=== PATIENT | male | born 1995 | race Caucasian/White ===

== ENCOUNTER 2018-05-23 14:06 | Emergency (ER) | payer OTHER | END 2018-05-23 15:35 | disposition home or self-care (01) | LOC: ERS 14:06 | DX: F41.9 Anxiety disorder, unspecified (principal); Z87.891 Personal history of nicotine dependence | CPT/HCPCS: 36416; 93005 ==

== ENCOUNTER 2018-07-18 13:56 | Emergency (ER) | payer OTHER, SELFPAY ==
--- NOTE | 2018-07-18 15:41 | RAD ---
CHEST TWO VIEWS: HISTORY: Chest pain. Anxiety attack. Dizziness. FINDINGS: Heart size is normal. Lungs are clear. IMPRESSION: No acute intrathoracic disease. POS: C
--- NOTE | 2018-07-22 11:28 | EKG ---
Test Reason : Blood Pressure : / mmHG Vent. Rate : 080 BPM Atrial Rate : 080 BPM P-R Int : 156 ms QRS Dur : 078 ms QT Int : 342 ms P-R-T Axes : 055 058 014 degrees QTc Int : 394 ms Normal sinus rhythm Normal ECG Confirmed by MARY BETH DASWON DO ([id number]), social media editor FILI CARDONA ([id number] on 07/22/2018 11:28:01 AM Referred By: Confirmed By:MARY BETH DAWSON DO
== END 2018-07-18 16:10 | disposition home or self-care (01) ==
LOC: ERS 13:56
DX: F41.9 Anxiety disorder, unspecified (principal); Z87.891 Personal history of nicotine dependence
CPT/HCPCS: 71046; 93005

== ENCOUNTER 2018-12-09 12:08 | Emergency (ER) | payer SELFPAY ==
[2018-12-09 13:08] LABS: #Eosinphils 0.1 thou/uL (0.0-0.7); #Lymphocytes 1.8 thou/uL (1.20-3.40); #Monocytes 0.6 thou/uL (0.11-0.59); #Neutrophils 5.8 thou/uL (1.40-6.50); %Basophils 0.5 % (0.0-1.0); %Eosinophils 0.9 % (0.0-10.0); %Lymphocytes 21.4 % (21.0-51.0); %Monocytes 7.7 % (0.0-10.0); %Neutrophils 69.7 % (42.0-75.0); Hemoglobin 15.6 g/dL (14.0-18.0); Mean Corpuscular HGB CONC 34.5 g/dL (32.0-36.0); Mean Corpuscular Hemoglobin 31.5 pg (27.0-31.0); Mean Corpuscular Volume 91.3 fL (78.0-98.0); Mean Platelet Volume 8.3 fL (7.4-10.4); Platelet Count 284 thou/uL (130-400); RBC Distribution Width 11.3 % (11.5-14.5); Red Blood Cell (RBC) Count 4.96 mill/uL (4.70-6.10); White Blood Cell (WBC) Count 8.3 thou/uL (4.8-10.8)
[2018-12-09 13:09] LABS: Bilirubin Negative (Negative); Blood, Urine Negative (Negative); Clarity Clear (Clear); Glucose, Urine (Dipstick) Normal (Negative); Leukocyte Negative Leu/uL (Negative); Nitrite Negative (Negative); Protein, Urine (Dipstick) Negative (Neg-Trace); Urobilinogen Normal mg/dL (Less than 2)
[2018-12-09 13:19] LABS: Amphetamine Not Detected (NotDetected); Barbiturates Screen Not Detected (NotDetected); Benzodiazepine Screen Not Detected (NotDetected); Cocaine Metabolite Screen Not Detected (NotDetected); Medtox Reader # READER 1; Methadone Not Detected (NotDetected); Methamphetamine Not Detected (NotDetected); Opiate Screen Not Detected (NotDetected); Oxycodone Screen Not Detected (NotDetected); Phencyclidine (PCP) Not Detected (NotDetected); THC/Cannabinoid Screen Not Detected (NotDetected); Tricyclic Screen Not Detected (NotDetected)
[2018-12-09 13:20] LABS: Medtox Control Line Valid? VALID (VALID)
[2018-12-09 13:28] LABS: ALT (SGPT) 34 U/L (8-55); AST (SGOT) 20 U/L (5-34); Albumin 4.8 g/dL (3.5-5.0); Alkaline Phosphatase 124 U/L (40-110); Anion Gap 13 mmol/L (10-20); BUN (Urea Nitrogen) 12 mg/dL (8.9-20.6); Bilirubin, Total 0.4 mg/dL (0.2-1.2); Calc. Creatinine Clearance 0 mL/min (70-130); Calcium 9.4 mg/dL (7.8-10.44); Carbon Dioxide 26 mmol/L (22-29); Chloride 102 mmol/L (98-107); Estimated GFR-MDRD Greater than 90; Glucose 70 mg/dL (70-105); Potassium 3.6 mmol/L (3.5-5.1); Protein, Total 7.8 g/dL (6.0-8.3); Sodium 137 mmol/L (136-145)
== END 2018-12-09 14:30 | disposition home or self-care (01) ==
LOC: ERS 12:08
DX: R55 Syncope and collapse (principal); F41.9 Anxiety disorder, unspecified; Z87.891 Personal history of nicotine dependence
CPT/HCPCS: 36415; 80053; 80306; 81003; 84484; 85025; 93005

== ENCOUNTER 2021-02-24 23:06 | Emergency (ER) | payer SELFPAY ==
[2021-02-25] LABS: #Eosinphils 0.1 thou/uL (0.0-0.7); #Lymphocytes 0.6 thou/uL (1.20-3.40); #Monocytes 0.9 thou/uL (0.11-0.59); #Neutrophils 4.7 thou/uL (1.40-6.50); %Basophils 0.3 % (0.0-1.0); %Eosinophils 0.9 % (0.0-10.0); %Lymphocytes 9.6 % (21.0-51.0); %Monocytes 14.6 % (0.0-10.0); %Neutrophils 74.6 % (42.0-75.0); Hemoglobin 14.1 g/dL (14.0-18.0); Mean Corpuscular HGB CONC 35.4 g/dL (32.0-36.0); Mean Corpuscular Hemoglobin 32.1 pg (27.0-31.0); Mean Corpuscular Volume 90.9 fL (78.0-98.0); Mean Platelet Volume 7.7 fL (7.4-10.4); Platelet Count 217 thou/uL (130-400); RBC Distribution Width 11.4 % (11.5-14.5); Red Blood Cell (RBC) Count 4.39 mill/uL (4.70-6.10); White Blood Cell (WBC) Count 6.3 thou/uL (4.8-10.8)
[2021-02-25] MEDS ORDERED: Ibuprofen 200 MG TAB ONE (00:03)
[2021-02-25] MEDS ORDERED: Acetaminophen 500 MG TAB ONE (00:03)
[2021-02-25 00:19] LABS: ALT (SGPT) 26 U/L (8-55); AST (SGOT) 23 U/L (5-34); Albumin 4.2 g/dL (3.5-5.0); Alkaline Phosphatase 95 U/L (40-110); Anion Gap 13 mmol/L (10-20); BUN (Urea Nitrogen) 13 mg/dL (8.9-20.6); Bilirubin, Total 0.4 mg/dL (0.2-1.2); Calc. Creatinine Clearance 0 mL/min (70-130); Carbon Dioxide 22 mmol/L (22-29); Chloride 105 mmol/L (98-107); Globulin 2.6 g/dL (2.4-3.5); Glucose 98 mg/dL (70-105); Potassium 3.9 mmol/L (3.5-5.1); Protein, Total 6.8 g/dL (6.0-8.3); Sodium 136 mmol/L (136-145)
[2021-02-25 15:20] LABS: SARS-CoV-2 PCR by NAA DETECTED (NotDetected)
== END 2021-02-25 03:28 | disposition home or self-care (01) ==
LOC: ERS 23:06
DX: U07.1 COVID-19 (principal); R00.0 Tachycardia, unspecified; Z87.891 Personal history of nicotine dependence
CPT/HCPCS: 36415; 71045; 80053; 84484; 85025; 87804; 93005; U0003; U0005

== ENCOUNTER 2021-03-02 12:21 | Emergency (ER) | payer OTHER, SELFPAY | END 2021-03-02 13:43 | disposition home or self-care (01) | LOC: ERS 12:21 | DX: Z02.89 Encounter for other administrative examinations (principal); Z87.891 Personal history of nicotine dependence | CPT/HCPCS: 99281 ==